=== PATIENT | male | born 1975 | race Caucasian/White ===

== ENCOUNTER 2016-11-13 23:06 | Emergency (ER) | payer SELFPAY ==
[~2016-11-13] VITALS: Ht 182.9 cm; Wt 78.7 kg
[~2016-11-13 23:06] MED LIST: CEPH-583 PO; NO ROUTINE MEDS; PRED10TA PO
--- OUTSIDE RECORDS SUMMARY | 2016-11-13 23:12 | XMS REPORT | Continuity of Care Document ---
Author Author [facility] Organization [facility] Address Unknown Phone Unavailable Support Name Relationship Address Phone MITCHEL BOUCHER MD Caregiver [address] [place] [phone] Unavailable DAVID BENNETTJulianna Next Of Kin [address] [place] [address] Insurance Providers Guarantor Suzie San Address [address] [place] [address] Email DENIED TO PT PORTAL 16 Payer Self Pay Subscriber's Name Suzie San Relationship 18 Self Chief Complaint and Reason for Visit Chief Complaint Skin Rash/Abscess Reason for Visit Folliculitis Problems Past Problems Medical Problem Onset Date Folliculitis Unknown Medications Current Home Medications Medication Dose Units Route Directions Days Qty Instructions Start Date Cephalexin (Keflex) 500 Mg Capsule 1,000 Mg Oral Twice A Day 40 Capsule 08/17/16 No Routine Meds 08/17/16 Prednisone 10 Mg Tablet 0 Oral Taper Qd 18 Tablet 30 mg daily x3 days 20 mg daily x3 days 10 mg daily x2 days 08/17/16 Social History Query Response Start Date Stop Date Smoking Status Current every day smoker Hospital Discharge Instructions No hospital discharge instructions. Plan of Care Discharge Date 08/17/16 1:20pm Disposition 01 DISCHARGED HOME, SELF-CARE Condition at Discharge Stable Instructions/Education Provided Folliculitis Prescriptions See Medication Section Additional Instructions/Education Keflex 500 mg, 2 tablets twice daily. Prednisone as directed. He will need to establish care and follow-up with one of the medical providers in the community. Functional Status No functional status results. Allergies, Adverse Reactions, Alerts No allergy information available. Immunizations No immunization records. Vital Signs Acute Vital Signs Vital Response Date/Time Temperature (Fahrenheit) 97.8 deg F (96.8 - 99.1) 08/17/2016 12:25pm Temperature (Calculated Celsius) 36.10493 degrees C (36.0 - 37.3) 08/17/2016 12:25pm Pulse Rate (adult) 90 bpm (60 - 100) 08/17/2016 12:25pm Respiratory Rate 20 breaths/min (10 - 20) 08/17/2016 12:25pm O2 Sat by Pulse Oximetry 100 % (90 - 100) 08/17/2016 12:25pm Blood Pressure 132/70 mm Hg 08/17/2016 12:25pm Height (Feet) 6 feet 08/17/2016 12:25pm Height (Inches) 0 inches 08/17/2016 12:25pm Weight (Kilograms) 80.600 kg 08/17/2016 12:25pm Body Mass Index (BMI) 24.0 08/17/2016 12:25pm Results No known relevant diagnostic tests, laboratory data and/or discharge summary. Procedures No known history of procedures. Encounters Encounter Location Arrival/Admit Date Discharge/Depart Date Attending Provider Departed Emergency Room [facility] 08/17/16 12:21pm 08/17/16 1: 20pm MITCHEL BOUCHER MD Recent Diagnosis
--- OUTSIDE RECORDS SUMMARY | 2016-11-13 23:12 | XMS REPORT | Continuity of Care Document ---
Author Author [facility] Organization [facility] Address Unknown Phone Unavailable Allergies Active Description Code Type Severity Reaction Onset Reported/Identified Relationship to Patient Clinical Status Yes No Known Drug Allergies No Known Drug Allergies Drug Allergy Unknown N/A 07/17/2009 Yes No Known Intolerances No Known Intolerances Drug Allergy Unknown N/A 07/17/2009 Yes No Known Allergies NKMA N/A N/A 03/19/2015 Yes No Known Drug Allergies No Known Drug Allergies Drug Allergy Unknown . 06/03/2015 Yes No Known Drug Allergies No Known Drug Allergies Drug Allergy Unknown . 06/03/2015 Yes egg-containing compound 79635 N/A N/A 09/01/2015 Medications Medication Packaging Start Date Stop Date Route Dosage Sig morphine(morphine 4 mg/mL syringe 1 mL) 1 mL 03/20/20152014 IV Push 4 mg 4 mg=1 mL, IV Push, q4hr, PRN: Pain ondansetron(Zofran) 2 mL 03/20/2015 03/20/2015 IV Push 4 mg 4 mg= 2 mL, IV Push, Once HYDROcodone-acetaminophen([place] 5 mg-325 mg oral tablet) 1 tabs 03/20/2015 03/22/2015 Oral 1 tabs, Oral, q4hr, for 2 days, PRN: as needed for pain, 12 tabs, 0 Refill(s) azithromycin(azithromycin) 2 tabs 03/20/2015 03/20/2015 Oral 500 mg 500 mg=2 tabs, Oral, Once azithromycin(Zithromax Z-Javier 250 mg oral tablet) 1 packets 04/27/2015 05/02/2015 Oral 1 packets, Oral, Daily, for 5 days, as directed on package labeling, 6 tabs, 0 Refill(s) amoxicillin(amoxicillin 500 mg oral tablet) 1 tabs 09/01/2015 09/11/2015 Oral 500 mg 500 mg=1 tabs, Oral, TID, for 10 days, for infection, 30 tabs, 0 Refill(s) HYDROcodone-acetaminophen(Lortab Elixir 10 mg-300 mg/15 mL oral liquid) 7.5 mL Oral 7.5 mL, Oral, q6hr, PRN: Pain Severe (7-10), 100 mL, 0 Refill(s) Problems Date Dx Coded Attending Type Code Diagnosis Diagnosed By 08/10/2012 Messi Ceron MD Final 250.00 DM2/NOS UNCOMP NSU 08/10/2012 Messi Ceron MD Final 305.1 TOBACCO USE DISORDER 08/10/2012 Messi Ceron MD Final 789.03 RLQ ABDOMINAL PAIN 03/22/2015 Justin Oconnor Final 305.1 TOBACCO USE DISORDER 03/22/2015 Justin Oconnor Reason 462 ACUTE PHARYNGITIS 03/22/2015 Justin Oconnor Final 466.0 ACUTE BRONCHITIS 03/22/2015 Justin Oconnor Final 789.09 ABDOMINAL PAIN, OTHER SPECIFIED SITE; MULTIPLE SITES 04/29/2015 Ramon Lisa MD Final 305.1 TOBACCO USE DISORDER 04/29/2015 Ramon Lisa MD Final 465.9 ACUTE UPPER RESPIRATORY INFECTIONS OF UNSPECIFIED SITE 04/29/2015 Ramon Lisa MD Reason 786.2 COUGH 01/26/2016 Jay Michelle Final H66.91 Otitis media, unspecified, right ear 01/26/2016 Jay Michelle Reason H92.01 Otalgia, right ear Procedures Results Test Result Range LIPASE - 10/14/15 10:30 LIPASE 146 Units/L 73-393 CBC W/DIFF - 10/14/15 10:31 EOSINOPHIL # 0.2 k/cumm 0.1-0.5 EOSINOPHIL % 2 % 2-4 GRANULOCYTE # 4.8 k/cumm 2.0-9.0 GRANULOCYTE % 54 % 50-75 LYMPHOCYTE # 3.0 k/cumm 1.0-4.0 LYMPHOCYTE % 33 % 20-30 MEAN CELL HGB 31.4 pg 27.0-33.0 MEAN CELL HGB CONCENTRATION 35.2 g/dL 32.0-37.0 MEAN CELL VOLUME 89.0 fl 80.0-100.0 MONOCYTE # 1.0 k/cumm 0.1-1.0 MONOCYTE % 11 % 4-6 RED BLOOD CELL 5.10 m/cumm 4.00-6.00 RED CELL DISTRIBUTION WIDTH 13.7 % 11.0- 15.6 WHITE BLOOD CELL 9.0 k/cumm 5.0-10.0 HEMOGLOBIN 16.0 gm/dL 14.0-18.0 HEMATOCRIT 45.4 % 40.0-54.0 PLATELET COUNT 261 k/cumm 150-450 METABOLIC PANEL, COMPREHN - 10/14/15 10:31 POTASSIUM 4.5 mmol/L 3.5-5.3 EST GFR (MDRD) > 60 mL/min > 59 ANION GAP 7 mmol/L 5-15 GLUCOSE 96 mg/dL 70-99 CALCIUM 8.7 mg/dL 8.5-10.1 BLOOD UREA NITROGEN 19 mg/dL 7-20 CREATININE 0.9 mg/dL 0.7-1.3 SODIUM 138 mmol/L 135-148 CHLORIDE 104 mmol/L 98-110 AST/SGOT 23 Units/L 10-37 ALT/SGPT 66 Units/L < 66 CARBON DIOXIDE 27 mmol/L 21-32 TOTAL PROTEIN 7.3 gm/dL 6.4-8.2 ALBUMIN 3.7 gm/dL 3.4-5.0 BILI TOTAL 0.2 mg/dL 0.0-1.0 ALKALINE PHOSPHATASE TOTAL 90 IU/L 45- 117 TROPONIN I BEDSIDE - 10/14/15 10:45 METHOD Bedside TROPONIN I < 0.04 ng/mL < 0.11 CBC W/DIFF - 05/23/16 10:44 EOSINOPHIL # 0.1 k/cumm 0.1-0.5 EOSINOPHIL % 1 % 2-4 GRANULOCYTE # 8.0 k/cumm 2.0-9.0 GRANULOCYTE % 63 % 50-75 LYMPHOCYTE # 3.4 k/cumm 1.0-4.0 LYMPHOCYTE % 27 % 20-30 MEAN CELL HGB 31.0 pg 27.0-33.0 MEAN CELL HGB CONCENTRATION 35.6 g/dL 32.0-37.0 MEAN CELL VOLUME 87.1 fl 80.0-100.0 MONOCYTE # 1.2 k/cumm 0.1-1.0 MONOCYTE % 10 % 4-6 RED BLOOD CELL 5.65 m/cumm 4.00-6.00 RED CELL DISTRIBUTION WIDTH 13.4 % 11.0- 15.6 WHITE BLOOD CELL 12.7 k/cumm 5.0-10.0 HEMOGLOBIN 17.5 gm/dL 14.0-18.0 HEMATOCRIT 49.2 % 40.0-54.0 PLATELET COUNT 338 k/cumm 150-400 METABOLIC PANEL, COMPREHN - 05/23/16 10:44 POTASSIUM 3.6 mmol/L 3.5-5.3 EST GFR (MDRD) > 60 mL/min > 59 ANION GAP 10 mmol/L 5-15 EST CrCl (CG) > 60 mL/min > 59 GLUCOSE 121 mg/dL 70-99 CALCIUM 9.1 mg/dL 8.5-10.1 BLOOD UREA NITROGEN 21 mg/dL 7-20 CREATININE 1.1 mg/dL 0.7-1.3 SODIUM 141 mmol/L 135-148 CHLORIDE 103 mmol/L 98-110 AST/SGOT 19 Units/L 10-37 ALT/SGPT 60 Units/L < 66 CARBON DIOXIDE 28 mmol/L 21-32 TOTAL PROTEIN 7.8 gm/dL 6.4-8.2 ALBUMIN 4.1 gm/dL 3.4-5.0 BILI TOTAL 0.4 mg/dL 0.0-1.0 ALKALINE PHOSPHATASE TOTAL 92 IU/L 45- 117 TROPONIN I - 05/23/16 10:44 TROPONIN I < 0.02 ng/mL < 0.07 URINALYSIS, ROUTINE - 05/23/16 10:45 UA LEUKOCYTE ESTERASE DIPSTICK NEGATIVE NEGATIVE UA NITRITE DIPSTICK NEGATIVE NEGATIVE UA PROTEIN DIPSTICK NEGATIVE NEGATIVE UA GLUCOSE DIPSTICK NEGATIVE NEGATIVE UA KETONE DIPSTICK NEGATIVE NEGATIVE UA UROBILINOGEN DIPSTICK NORMAL NORMAL UA BILIRUBIN DIPSTICK NEGATIVE NEGATIVE UA BLOOD DIPSTICK NEGATIVE NEGATIVE UA SPECIFIC GRAVITY 1.019 1.015-1.025 UR PH 8.0 5.0-7.0 Encounters ACCT No. Visit Date/Time Discharge Status Pt. Type Provider Facility Loc./Unit Complaint [id number] 08/10/2012 20:42:00 2012 01:20:00 DIS Emergency Osmany LEOS, [facility]
--- NOTE | 2016-11-13 23:25 | NUR ---
LOBBY PT IS SLEEPING ON A BENCH IN THE LOBBY, IS INFORMED OF DELAY. PT IS PINK, NO VOMITTING SINCE ARRIVAL.
[2016-11-13 23:40] VITALS: TEMP 98.2; Ht 182.9 cm; Wt 78.7 kg
--- NOTE | 2016-11-13 23:53 | NUR ---
PROVIDER DR ARELLANO IN ROOM AT THIS TIME.
[2016-11-13] MEDS ORDERED: NO CURRENT HOME MEDS (23:58)
[2016-11-14] MEDS ORDERED: PROCHLORPERAZINE 10mg/2ml INJECTION IV ONE
[2016-11-14] MEDS ORDERED: KETOROLAC 30mg/ml INJECTION IV ONE
[2016-11-14] MEDS ORDERED: ORPHENADRINE 60mg/2ml INJECTION IV ONE
[2016-11-14] MEDS ORDERED: NORMAL SALINE 1,000 ML IV ONE
--- NOTE | 2016-11-14 | ERPDOC ---
Departure Disposition Decision Date: Nov 14, 2016 Disposition Decision Time: 01:20 Disposition: 01 DISCHARGED HOME, SELF-CARE Impression Impression Impression: Primary Impression: Viral gastroenteritis Additional Impression: Lumbar muscle pain Severity: Severe Condition: Improved Seen By: Physician only Patient Instructions: Gastroenteritis (ED) Problems/Meds/Labs Reviewed?: Yes Medications reviewed and manag: Yes Additional Instructions: Compazine 10 mg one tablet up to 4 times daily as needed for cramps or nausea Ibuprofen 600 mg 4 times daily and/or Tylenol 1000 mg 4 times daily as needed for pain or fever Follow up care ordered?: Yes Mental Status: Alert Scripts Prochlorperazine Maleate (Compazine) 10 Mg Tablet 10 MG PO QID, #30 TAB 0 Refills Prov: SUZIE ARELLANO MD 11/14/16 HPI - Abdominal Pain General Chief Complaint: Flank Pain Stated Complaint: VOMITING/DIFFICULTY BREATHING Time Seen by Provider: 23:51 Source: patient, family History/Exam Limitations: no limitations HPI - Abdominal Pain Initial Comments Patient has 24 hours of significant nausea with vomiting, and low back pain. Patient has been having chills, but no fever. He has been unable to take any medications at home. Patient has no primary care physician, has no insurance, and has no money to even by [id number] medications. Occurred At: home Onset: Gradual Duration: 12-24 hrs Quality: aching, cramping Radiation: back 1 - Moderate diffuse bilateral paraspinal muscle pain/tenderness Associated Symptoms: nausea/vomiting, DENIES: back pain, chest pain, diaphoresis, fatigue, fever/chills, headache, heartburn, rash, shortness of breath, swelling/mass in abdomen, syncope, weakness Hx of Similar Symptoms: No Allergies: Coded Allergies: Egg. (Verified Allergy, Unknown, 11/13/16) NKDA (Verified Allergy, Unknown, 11/13/16) Past History Patient Surgical History Patient denies any surgeries Past Medical History Pt denies signifigant PMH Surgical History Denies Surgeries Social History Smoking Status: Never smoker Does patient use chewing tobac: No Second Hand Exposure: No Substance Use Type: does not use Sexuality: female partner Record Review Pertinent history updated: Yes Review of Systems Constitutional Constitutional: DENIES: appetite decrease, appetite increase, chills, dizziness , fever, weakness ENMT Ears: DENIES: pain Hearing: DENIES: hearing loss, tinnitus Balance: DENIES: vertigo Mouth/Throat: DENIES: change in swallowing, change in voice, hoarsness, painful swallowing, sore throat Cardiovascular Cardiac: DENIES: chest pain, dyspnea on exertion Rhythm/Rate: DENIES: irregular beat, palpitations, tachycardia Vascular: DENIES: pedal edema Pulmonary Respiratory: DENIES: cough, dyspnea, pleuritic chest pain GI Upper Abdomen: nausea, vomiting, DENIES: dysphagia, food intolerances, heartburn/indigestion, hematemesis, pain Lower Abdomen: pain, DENIES: blood in stool, kayla-colored stools, constipation , diarrhea, melena, painful BM General: DENIES: burning, dysuria, frequency, pain, urgency Musculoskeletal General: DENIES: cramps, joint pain, joint swelling, pain, weakness Integumentary Skin: DENIES: rash, sores Neurological General: DENIES: headache, numbness, tingling, vertigo, weakness Physical Exam General General Nourishment: well nourished, well developed, appears stated age, no acute distress General Body Habitus: well groomed Vitals and Pain First Documented Vital Signs Date Time Temp Pulse Resp B/P Pulse Ox O2 Delivery O2 Flow Rate FiO2 11/13/16 23:40 98.2 99 18 159/100 98 Room Air Weight: Kilograms: Height (feet): 6 Height (inches): 0 Triage Pain Scale: RN VS reviewed by Provider: Yes Normal Exams: Head: Normocephalic w/o trauma Eyes: Pupils are PERRLA w/ EOMI, No scleral icterus, irritation, or foreign bodies noted ENMT: No facial trauma, nasal exudates, pharyngeal erythema, or exudates are noted Neck: Full range of motion, without adenopathy, JVD, bruits or thyromegaly Chest/Resp: Clear all berger, with good airflow, and symmetry bilaterally CV: Regular rate and rhythm, without murmur or gallop, Pulses 2+ all extremities, capillary refill, <2 seconds all ext., no pedal edema noted Lymphatic: No lymphadenopathy, or lymphedema noted Integumentary: No rashes, hives, or bruising noted, hair and nails, without abnormality Neurologic: Patient is alert, and oriented, cranial nerves, motor/sensory/ cerebellar, exams w/o gross deficits, to observation Psychiatric: Patient exhibits, appropriate attention, emotion and affect Abdomen (brief) Abdominal Brief: FOUND: bowel normo active x4, soft, NOT FOUND: distended, hepatosplenomegaly, pulsatile mass, tender Lymphatic (brief) Lymphatic Brief: NOT FOUND: adenopathy, lymphedema Musculoskeletal (brief) Musculoskeletal Brief: FOUND: spasm, tenderness, NOT FOUND: deformity, loss of motion Comments Bilateral lumbar paraspinal tenderness with mild spasms Progress Results/Orders Orders Procedure Category Date Status Time Iv Lock (Ed Only) EDM 11/13/16 Transmitted 23:54 Cbc W/Auto LAB 11/13/16 Complete Diff-Reflex Manual Cmp - Comprehensive LAB 11/13/16 Complete Metabolic Lipase LAB 11/13/16 Complete Ua, Dip Wreflex LAB 11/13/16 Complete Microsc & Asphalt Blender 23:54 Ketorolac (Toradol) PHA 11/14/16 Complete 00:00 Prochlorperazine PHA 11/14/16 Complete (Compazine) 00:00 Orphenadrine (Norflex) PHA 11/14/16 Complete 00:00 Normal Saline (Normal PHA 11/14/16 Complete Saline Iv) 00:00 Lab Results Laboratory Tests Test 11/14/16 00:25 White Blood Count 10.3T/MM3 Red Blood Count 5.17M/MM3 Hemoglobin 15.9GM/DL Hematocrit 45.6% Mean Corpuscular Volume 88.2UM3 Mean Corpuscular Hemoglobin 30.8UUG Mean Corpuscular Hemoglobin Concent 34.9GM/DL RDW Standard Deviation 42.4FL Platelet Count 273T/MM3 Mean Platelet Volume 8.8UM3 Immature Granulocyte % (Auto) % Neutrophils (%) (Auto) % Lymphocytes (%) (Auto) % Monocytes (%) (Auto) % Eosinophils (%) (Auto) % Basophils (%) (Auto) % Absolute Immature Granulocyte (auto T/MM3 Absolute Neutrophils (auto) T/MM3 Absolute Lymphocytes (auto) T/MM3 Absolute Monocytes (auto) T/MM3 Absolute Eosinophils (auto) T/MM3 Absolute Basophils (auto) T/MM3 Neutrophils % (Manual) 34.0% Band Neutrophils % 4.0% Lymphocytes % (Manual) 29.0% Reactive Lymphocytes % 23.0% Monocytes % (Manual) 9.0% Eosinophils % (Manual) 1.0% Absolute Neutrophils (Manual) 3.5T/MM3 Band Neutrophils # 0.4T/MM3 Lymphocytes # (Manual) 3.0T/MM3 Reactive Lymphocytes # 2.4T/MM3 Monocytes # (Manual) 0.9T/MM3 Eosinophils # (Manual) 0.1T/MM3 Red Cell Morphology Comment Normal Urine Collection Type Cleancatch-midstream Urine Color Yellow Urine Turbidity Sl cloudy Urine pH 8.0 Urine Specific [place] 1.020 Urine Protein Trace Urine Glucose (UA) Negative Urine Ketones Negative Urine Blood Negative Urine Nitrite Negative Urine Bilirubin Negative Urine Urobilinogen 1.0EU/DL Urine Leukocyte Esterase Negative Urinalysis Comment Microscopic not ind. Turbidity < 20 Sodium Level 145MEQ/L Potassium Level 3.6MEQ/L Chloride Level 104MEQ/L Carbon Dioxide Level 27MEQ/L Anion Gap 14MEQ/L Blood Urea Nitrogen 10.0MG/DL Creatinine 0.8MG/DL Glomerular Filtration Rate Calc 108 BUN/Creatinine Ratio 13RATIO Glucose Level 115MG/DL Calculated Osmolality 279MOSM/KG Calcium Level 8.9MG/DL Total Bilirubin 0.70MG/DL Icterus Index < 2 Aspartate Amino Transf (AST/SGOT) 56U/L Alanine Aminotransferase (ALT/SGPT) 98U/L Alkaline Phosphatase 115U/L Total Protein 7.6G/DL Albumin 4.0G/DL Globulin 3.6G/DL Albumin/Globulin Ratio 1.1RATIO Lipase 44U/L Chemistry Specimen Hemolysis 34 Medications Current ED Medications Ketorolac Tromethamine (Toradol) 30 mg O ONCE IV Last administered on 00:38; Start 11/14/16 at 00:00; Stop 11/14/16 at 00:01; Status DC Prochlorperazine Edisylate (Compazine) 10 mg O ONCE IV Last administered on 00:39; Start 11/14/16 at 00:00; Stop 11/14/16 at 00:01; Status DC Orphenadrine Citrate 60 mg 60 mg O ONCE IV Last administered on 11/14/16 00: 38; Start 11/14/16 at 00:00; Stop 11/14/16 at 00:01; Status DC Sodium Chloride (Normal Saline IV) 1,000 ml @ 0 mls/hr Q0M ONCE IV Last administered on 11/14/16 00:35; Start 11/14/16 at 00:00; Stop 11/14/16 at 00:01 ; Status DC Progress Progress Patient given 1 L normal saline IV fluid bolus, Toradol 30 mg, Norflex 60 mg, and Compazine 10 mg IV - to relief CBC - n CMP/L -n UA - n Patient given prescription for Compazine and Compazine pack for SUZIE Santos MD Nov 14, 2016 00:00
--- NOTE | 2016-11-14 00:15 | NUR ---
BR PT AMBULATES TO AND PROVIDES URINE SAMPLE FOR LAB.
[2016-11-14 00:40] LABS: HCT - HEMATOCRIT 45.6 % (41-53); HGB - HEMOGLOBIN 15.9 GM/DL (13.5-17.5); MEAN CORPUSCULAR HGB 30.8 UUG (26-34); MEAN CORPUSCULAR HGB CONC(MCHC 34.9 GM/DL (31-37); MEAN CORPUSCULAR VOLUME 88.2 UM3 (80-100); MEAN PLATELET VOLUME 8.8 UM3 (9.4-12.4); RED BLOOD COUNT 5.17 M/MM3 (4.50-5.90); WBC - WHITE BLOOD COUNT 10.3 T/MM3 (4.5-11.0)
[2016-11-14 00:46] LABS: ALBUMIN/GLOBULIN RATIO 1.1 RATIO (1.1-2.2); ALKALINE PHOSPHATASE 115 U/L (38-126); ALT (SGPT) 98 U/L (21-72); ANION GAP 14 MEQ/L (5-15); AST (SGOT) 56 U/L (17-59); BUN/CREATININE RATIO 13 RATIO (6-26); CALCIUM 8.9 MG/DL (8.4-10.2); CHLORIDE 104 MEQ/L (98-107); CO2 - CARBON DIOXIDE 27 MEQ/L (22-30); CREATININE 0.8 MG/DL (0.8-1.5); GLOMERULAR FILTRATION RATE 108; GLUCOSE 115 MG/DL (75-110); LIPASE 44 U/L (23-300); POTASSIUM 3.6 MEQ/L (3.6-5); SODIUM 145 MEQ/L (134-144); TOTAL PROTEIN 7.6 G/DL (6.3-8.2)
[2016-11-14 00:50] LABS: BLOOD, URINE NEGATIVE (NEGATIVE); COLOR,URINE YELLOW (YELLOW); LEUKOCYTE ESTERASE ,URINE NEGATIVE (NEGATIVE); NITRITE,URINE NEGATIVE (NEGATIVE)
[2016-11-14 00:59] LABS: BAND NEUTROPHILS # 0.4 T/MM3; EOSINOPHILS # (MANUAL) 0.1 T/MM3 (0-0.5); MONOCYTES # (MANUAL) 0.9 T/MM3 (0-0.8); NEUTROPHILS #(MANUAL)-ABSOLUTE 3.5 T/MM3 (1.8-7.7); REACTIVE LYMPHOCYTES # 2.4 T/MM3 (0-0); TOTAL CELLS COUNTED 100 %
--- NOTE | 2016-11-14 01:18 | NUR ---
STATUS PT IS ASLEEP AND DIFFICULT TO AWAKE, WHEN HE AWAKES HE DENIES ANY NAUSEA AND RATES HIS PAIN 5/10.
[2016-11-14] MEDS ORDERED: PROC-14 PO (01:21)
[2016-11-14] MEDS ORDERED: PROCHLORPERAZINE 10MG (PrePack) SENT HOME ONE (01:30)
[2016-11-14 01:55] VITALS: BP 138/76; PULSE 91; RESP 12; O2SAT 99
--- NOTE | 2016-11-14 01:55 | NUR ---
DEPART PT IS DISCHARGED AT THIS TIME, INSTRUCTIONS ARE REVIEWED AND UNDERSTANDING IS VOICED. PT LEAVES AMBULATORY WITH FEMALE.
--- OUTSIDE RECORDS SUMMARY | 2016-11-14 02:03 | XMS REPORT | Continuity of Care Document ---
Author Author [facility] Organization [facility] Address Unknown Phone Unavailable Allergies Active Description [...] Allergy Unknown . 06/03/2015 Yes egg-containing compound 53673 N/A N/A 09/01/2015 Medications Medication Packaging Start Date Stop Date Route Dosage Sig morphine(morphine 4 mg/mL syringe 1 mL) 1 mL 03/20/20152014 IV Push 4 mg 4 mg=1 mL, IV Push, q4hr, PRN: Pain ondansetron(Zofran) 2 mL 03/20/2015 03/20/2015 IV Push 4 mg 4 mg= 2 mL, IV Push, Once HYDROcodone-acetaminophen([place] 5 mg-325 mg oral tablet) 1 tabs [...] Lisa MD Reason 786.2 COUGH 01/26/2016 Jay iMchelle Final H66.91 Otitis media, unspecified, right ear [...] Status Pt. Type Provider Facility Loc./Unit Complaint [id number] 08/10/2012 20:42:00 2012 01:20:00 DIS Emergency Osmany LEOS, [facility]
== END 2016-11-14 01:55 | disposition home or self-care (01) ==
LOC: ED 23:06
DX: A08.4 Viral intestinal infection, unspecified (principal); M54.5 Low back pain
CPT/HCPCS: 80053; 81003; 83690; 85025